=== PATIENT | female | born 1980 | race Caucasian/White ===

== ENCOUNTER → 2022-07-23 | Outpatient (CLI) | payer OTHER ==
--- NOTE | 2022-07-24 21:30 | CT ---
EXAMINATION TYPE: CT abdomen pelvis wo con DATE OF EXAM: 07/23/2022 COMPARISON: None HISTORY: 42-year-old female R10.84, medial abdominal/umbilical pain [id number]/ since hysterectomy January 2022 CT DLP: 721 mGycm. Automated exposure control for dose reduction was used. TECHNIQUE: Contiguous axial scanning of the abdomen and pelvis without IV contrast. Coronal and sagit karen reconstructions performed. FINDINGS: Heart normal size without pericardial effusion. Some strandy atelectasis in the lower lungs. A tiny 3 mm peripheral left lower lobe pulmonary nodule is of questionable clinical significance. Noncontrast appearance of the liver, gallbladder, adrenal glands, kidneys, spleen, and pancreas show no gross abnormality. No dilated small bowel, free fluid, or free air. No mesenteric or retroperitoneal lymphadenopathy. Normal appendix. There is mild to moderate stool burden. Mildly redundant sigmoid colon. No pericolon ic inflammatory change. Tiny fatty medical hernia measuring only 1 cm. Bladder is urine distended. Left-sided pelvic phleboliths. Uterus surgically absent. Both ovaries are visualized. No abnormal fluid collection in the pelvis or pelvic lymphadenopathy seen. 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 No osseous destructive process. IMPRESSION: 1. Tiny fatty umbilical hernia measuring only 1 cm. 2. Mild to moderate stool burden. 3. Status post hysterectomy. No acute inflammatory process identified in the abdomen or pelvis to ex plain the patient's symptoms.
== END | disposition home or self-care (01) ==
LOC: RADCTMAIN 13:30
PROVIDERS: ATTEND Family Medicine
DX: K42.9 Umbilical hernia without obstruction or gangrene (principal); R19.5 Other fecal abnormalities; Z90.710 Acquired absence of both cervix and uterus
CPT/HCPCS: 74176